=== PATIENT | female | born 1950 | race Caucasian/White ===

== ENCOUNTER → 2016-08-16 | Outpatient (CLI) | payer OTHER | LOC: FIMAGING 08:11 | DX: Z12.31 Encounter for screening mammogram for malignant neoplasm of breast (principal); Z80.3 Family history of malignant neoplasm of breast | CPT/HCPCS: G0202 ==

== ENCOUNTER → 2016-08-27 | Outpatient (CLI) | payer OTHER | LOC: BMCIMAGING 15:16 | PROVIDERS: ATTEND Family Medicine | DX: J40 Bronchitis, not specified as acute or chronic (principal) ==

== ENCOUNTER 2016-09-02 20:29 | Emergency (ER) | payer OTHER ==
--- NOTE | 2016-09-02 20:50 | CPEKG ---
Heart Rate: 122 RR Interval: 492 P-R Interval: 124 QRSD Interval: 74 QT Interval: 308 QTC Interval: 439 P Floweree: 78 QRS Floweree: 14 T Wave Floweree: 86 EKG Severity - OTHERWISE NORMAL ECG - EKG Impression: SINUS TACHYCARDIA Electronically Signed By: Bony Canchola 02-Sep-2016 22:49:54
[2016-09-02] MEDS ORDERED: ASPIRIN 81 MG CHEWABLE TAB ONE (20:52)
[2016-09-02] MEDS ORDERED: ASPIRIN 325 MG TAB PO ONE (20:55)
[2016-09-02 20:57] VITALS: O2SAT 96
[2016-09-02] MEDS ORDERED: NS 1,000 ML IV ONE (21:00)
[2016-09-02 21:04] LABS: % IMMATURE GRANULYOCYTES 0.4 % (0.0-1.1); ABSOLUTE IMMATURE GRANULOCYTES 0.05 10^3/uL (0.00-0.10); ADD DIFF? NO; ADD MORPH? NO; ADD SCAN? NO; ATYPICAL LYMPHOCYTE FLAG 50 (0-99); FRAGMENT RBC FLAG 0 (0-99); HEMATOCRIT 42.9 % (38.0-47.0); HEMOGLOBIN 14.9 g/dL (12.6-16.3); LEFT SHIFT FLG 0 (0-99); LIPEMIA HEMOLYSIS FLAG 90 (0-99); MEAN CELL HEMOGLOBIN 30.8 pg (27.9-34.1); MEAN CELL HEMOGLOBIN CONCENTR. 34.7 g/dL (32.4-36.7); MEAN CELL VOLUME 88.6 fL (81.5-99.8); MEAN PLATELET VOLUME 9.5 fL (8.7-11.7); PLATELET CLUMPS FLAG 0 (0-99); PLATELET COUNT 211 10^3/uL (150-400); RED BLOOD CELL COUNT 4.84 10^6/uL (4.18-5.33); RED CELL DISTRIBUTION WIDTH 12.5 % (11.5-15.2)
[2016-09-02] MEDS ORDERED: LIDOCAINE 2% VISCOUS 15 ML UDCUP PO ONE ×2 (21:10→22:42)
[2016-09-02] MEDS ORDERED: HYOSCYAMINE SULFATE 0.125 MG TAB PO ONE ×2 (21:10→22:42)
[2016-09-02] MEDS ORDERED: MAG HYDROX/AL HYDROX/SIMETH 30 ML UDCUP PO ONE ×2 (21:10→22:42)
[2016-09-02 21:17] LABS: ANION GAP 12 mEq/L (8-16); CALCIUM 9.5 mg/dL (8.5-10.4); CARBON DIOXIDE 25 mEq/l (22-31); CHLORIDE 100 mEq/L (97-110); CREATININE 0.8 mg/dL (0.6-1.0); GLOMERULAR FILTRATION RATE > 60; GLUCOSE 142 mg/dL (70-100); POTASSIUM 3.6 mEq/L (3.5-5.2); SODIUM 137 mEq/L (134-144)
--- NOTE | 2016-09-02 21:25 | EDPHY ---
H & P Stated Complaint: sternal chest pain rad to R shoulder worse w/ eating; tachycardia; fever Time Seen by Provider: 09/02/16 20:57 - Personal History Current Tetanus/Diphtheria Vaccine: Yes Current Tetanus Diphtheria and Acellular Pertussis (TDAP): Yes Tetanus Vaccine Date: Pt. unsure of exact date. States "I know that I'm up to date." - Medical/Surgical History Hx Asthma: Yes Hx Chronic Respiratory Disease: No Hx Diabetes: No Hx Cardiac Disease: No Hx Renal Disease: No Hx Cirrhosis: No Hx Alcoholism: No Hx HIV/AIDS: No Hx Splenectomy or Spleen Trauma: No Other PMH: parternal cardiac arrest age 59; asthma; hx eosinophilic pneumonia; diabetes type 2 (non-insulin); osteopenia - Social History Smoking Status: Never smoked Constitutional: Initial Vital Signs Temperature (C) 38.2 C 09/02/16 20:31 Heart Rate 130 H 09/02/16 20:31 Respiratory Rate 20 09/02/16 20:31 Blood Pressure 131/86 H 09/02/16 20:31 O2 Sat (%) 91 L 09/02/16 20:31 O2 Delivery Mode Nasal Cannula O2 (L/minute) 2 Allergies/Adverse Reactions: No Known Allergies Allergy (Unverified 07/25/10 00:26) Home Medications: Medication Instructions Recorded Albuterol Sulfate [Albuterol HFA 2 puffs IH Q4-6PRN PRN 07/25/10 17g] PREDNISONE 30 mg PO DAILY 07/25/10 Xolair IM AD 07/25/10 Atorvastatin Calcium 09/02/16 Dulera 09/02/16 Famotidine [Pepcid 20 MG (OTC)] 20 mg PO DAILY #10 tab 09/02/16 Metformin HCl 09/02/16 Medical Decision Making - Diagnostics Imaging: I viewed and interpreted images myself ED Course/Re-evaluation: CHIEF COMPLAINT: Fever, malaise HISTORY OF PRESENT ILLNESS: The patient is a 65 y/o female, with a history of eosinophilic pneumonia, arriving with her complaining of persistent fever and malaise for the last week with intermittent chest pain onset today. She developed a fever and elevated heart rate around 130 a week ago and was evaluated at urgent care for this. Her flu swab was negative and she was started on a Z-pack for presumed bacterial infection. During this time, she's had a productive cough with some dyspnea, but not worse than baseline. She has continued to feel poor and today developed "extreme heartburn" that radiates into her right arm any time she eats or drinks. Aside from the heartburn sensation, these symptoms feel similar to prior episodes of eosinophilic pneumonia. No abdominal pain, diarrhea. REVIEW OF SYSTEMS: A 10 point review of systems was performed and is negative with the exception of the elements mentioned in the history of present illness. PHYSICAL EXAM: General Appearance: Alert, well hydrated, appropriate, and non-toxic appearing. Head: Atraumatic without scalp tenderness or obvious injury Eyes: Pupils equal, round, reactive to light and accommodation, EOMI, no trauma , no injection. Nose: Atraumatic, no rhinorrhea, clear. Throat: There is no erythema or exudates, no lesions, normal tonsils, mucus membranes moist. Neck: Supple, non-tender, no lymphadenopathy. Respiratory: No retractions, no distress, no wheezes, and no accessory muscle use. Lungs are clear to auscultation bilaterally. Cardiovascular: Tachycardic regular rate and rhythm, no murmurs, rubs, or gallops. Good capillary refill all extremities. Gastrointestinal: Abdomen is soft, non-tender, non-distended, no masses, no rebound, no guarding, no peritoneal signs. Musculoskeletal: Normal active ROM of all extremities, atraumatic. Neurological: Alert, appropriate, and interactive. Nonfocal neuro exam. Skin: No rashes, good turgor, no nodules on palpation. PAST MEDICAL HISTORY: Chronic eosinophilic pneumonia PAST SURGICAL HISTORY: Denies FAMILY HISTORY: Daughter has eosinophilic esophagitis SOCIAL HISTORY: at bedside PCP: Dr. Kristen Quintana Disbursing Agent: Dr. Claude Lopez DIAGNOSTICS/PROCEDURES/CRITICAL CARE TIME: The 12 lead EKG was interpreted by myself. Sinus tachycardiac rate 122. See hard copy and/or "tracemaster" electronic copy for interpretation. Chest x-ray: negative DIFFERENTIAL DIAGNOSIS: The differential diagnosis for the patient's chest pain included but was not limited to eosinophilic esophagitis, eosinophilic pneumonia , sepsis, myocardial ischemia, pulmonary embolus, chest wall pain, pleural inflammation, and pulmonary infectious causes. MEDICAL DECISION MAKING: This is a 65 y/o female who presents with a 1-week history of fever and malaise and heartburn with radiating right arm pain onset today. She has a history of eosinophilic pneumonia that she reports also tends to cause fever and general malaise without heartburn. She is tachycardic around 130 and borderline hypoxemic at 91%, but her exam is otherwise unremarkable. Her symptoms may very likely by eosinophilic esophagitis as her pain underlies her sternum and is brought on by eating and drinking. She currently does not meet sepsis screening criteria. Plan for IV, labs, chest x-ray, EKG, and symptomatic treatment. 324mg PO Aspirin and PO GI cocktail administered. Patient declines pain mediation at this time. Despite elevated lactate, does not appear septic. EKG and chest x-ray unremarkable. 1012: Consulted with Dr. Claude Lopez, patient's pasteurizer helper. He agrees with work up and plan for discharge home if patient is feeling improved. He notes patient has a 20+ year use of prednisone and could have an ulcer or gastritis as well. She is scheduled to see him as an outpatient tomorrow in his clinic. Reassessed patient and discussed work up and Dr. Claude Lopez's plan for follow up. Her HR has improved to 96. She is feeling much better and denies ongoing more pain. She notes she's been on 20mg prednisone daily for last week. She will receive 40mg IV Pepcid here prior to discharge. She's [place] [facility] [place]. Return precautions given. She is comfortable with plan for follow up. - Data Points Laboratory Results: Laboratory Results 09/02/16 20:50 09/02/16 20:50 09/02/16 09/02/16 09/02/16 20:50 20:50 20:50 WBC 11.72 10^3/uL H 10^3/uL (3.80-9.50) RBC 4.84 10^6/uL 10^6/uL (4.18-5.33) Hgb 14.9 g/dL g/dL (12.6-16.3) Hct 42.9 % % (38.0-47.0) MCV 88.6 fL fL (81.5-99.8) MCH 30.8 pg pg (27.9-34.1) MCHC 34.7 g/dL g/dL (32.4-36.7) RDW 12.5 % % (11.5-15.2) Plt Count 211 10^3/uL 10^3/uL (150-400) MPV 9.5 fL fL (8.7-11.7) Neut % (Auto) 66.9 % % (39.3-74.2) Lymph % (Auto) 19.7 % % (15.0-45.0) Scurry % (Auto) 12.3 % % (4.5-13.0) Eos % (Auto) 0.3 % L % (0.6-7.6) Baso % (Auto) 0.4 % % (0.3-1.7) Nucleat RBC Rel Count 0.0 % % (0.0-0.2) Absolute Neuts (auto) 7.84 10^3/uL H 10^3/uL (1.70-6.50) Absolute Lymphs (auto) 2.31 10^3/uL 10^3/uL (1.00-3.00) Absolute Monos (auto) 1.44 10^3/uL H 10^3/uL (0.30-0.80) Absolute Eos (auto) 0.03 10^3/uL 10^3/uL (0.03-0.40) Absolute Basos (auto) 0.05 10^3/uL 10^3/uL (0.02-0.10) Absolute Nucleated RBC 0.00 10^3/uL 10^3/uL (0-0.01) Immature Gran % 0.4 % % (0.0-1.1) Immature Gran # 0.05 10^3/uL 10^3/uL (0.00-0.10) VBG Lactic Acid 2.6 mmol/L H mmol/L (0.7-2.1) Sodium 137 mEq/L mEq/L (134-144) Potassium 3.6 mEq/L mEq/L (3.5-5.2) Chloride 100 mEq/L mEq/L (97-110) Carbon Dioxide 25 mEq/l mEq/l (22-31) Anion Gap 12 mEq/L mEq/L (8-16) BUN 24 mg/dL H mg/dL (7-23) Creatinine 0.8 mg/dL mg/dL (0.6-1.0) Estimated GFR > 60 Glucose 142 mg/dL H mg/dL (70-100) Calcium 9.5 mg/dL mg/dL (8.5-10.4) Troponin I < 0.012 ng/mL ng/mL (0-0.034) NT-Pro-B Natriuret Pep 49 pg/mL pg/mL (0-125) Medications Given: Discontinued Medications Al Hydroxide/Mg Hydroxide (Maalox Susp) 30 ml PO ONCE ONE Stop: 09/02/16 21:11 Last Admin: 09/02/16 21:27 Dose: 30 ml Aspirin (Aspirin) 325 mg PO EDNOW ONE Stop: 09/02/16 20:56 Last Admin: 09/02/16 20:57 Dose: 325 mg Hyoscyamine Sulfate (Levsin, Hyomax-Sl) 0.25 mg PO ONCE ONE Stop: 09/02/16 21:11 Last Admin: 09/02/16 21:27 Dose: 0.25 mg Lidocaine (Lidocaine 2% Viscous) 15 ml PO ONCE ONE Stop: 09/02/16 21:11 Last Admin: 09/02/16 21:27 Dose: 15 ml Departure - Departure Disposition: Home, Routine, Self-Care Clinical Impression: Eosinophilic esophagitis Condition: Good Instructions: Esophagitis (ED) Additional Instructions: 1. Follow up with Dr. Claude Lopez tomorrow as planned. 2. Take Pepcid daily until directed otherwise by GI. 3. Use GI cocktail as prescribed if needed for recurrent symptoms prior to your appointment with Dr. Claude Lopez. 4. Follow up with [facility] Muir, next week. 4. Return to the ED for any worsening of condition. Referrals: Mehnaz Quintana MD [Primary Care Provider] - As per Instructions Jorge Harkins MD [[facility] [place] - As per Instructions Claude Lopez MD [Medical Doctor] - As per Instructions Prescriptions: Famotidine [Pepcid 20 MG (OTC)] 20 mg PO DAILY #10 tab Report Scribed for: Bony Canchola Report Scribed by: Barbara Cuba Date of Report: 09/02/16 Time of Report: 22:15
[2016-09-02 21:29] LABS: TROPONIN I < 0.012 ng/mL (0-0.034)
[2016-09-02] MEDS ORDERED: FAMOTIDINE 20 MG TAB PO ONE (22:43)
[2016-09-02 22:51] VITALS: BP 115/82; PULSE 100; RESP 14; TEMP 98.1
== END 2016-09-02 22:51 | disposition home or self-care (01) ==
DX: K20.0 Eosinophilic esophagitis (principal); J45.909 Unspecified asthma, uncomplicated; E11.9 Type 2 diabetes mellitus without complications; Z79.84 Long term (current) use of oral hypoglycemic drugs

== ENCOUNTER 2016-12-29 11:15 | Day surgery (SDC) | payer OTHER ==
[2016-12-29] MEDS ORDERED: LIDOCAINE 1% 2 ML INJ ID PRN (11:48)
[2016-12-29] MEDS ORDERED: LR 1,000 ML IV ONE (11:48)
--- NOTE | 2016-12-29 12:03 | PDANEPAE ---
ANE History of Present Illness 66 year old female w/ PMHx of severe asthma, eosinophilic esophagitis & NIDDM presents for 5th metatarsal ORIF. ANE Past Medical History - Cardiovascular History Hx Hypertension: No Hx Arrhythmias: No Hx Chest Pain: No Hx Coronary Artery / Peripheral Vascular Disease: No Hx CHF / Valvular Disease: No Hx Palpitations: No - Pulmonary History Hx COPD: Yes Hx Asthma/Reactive Airway Disease: Yes Hx Recent Upper Respiratory Infection: No Hx Oxygen in Use at Home: No Hx Sleep Apnea: No Sleep Apnea Screening Result - Last Documented: Negative Pulmonary History Comment: severe asthma - Neurologic History Hx Cerebrovascular Accident: No Hx Seizures: No Hx Dementia: No - Endocrine History Hx Diabetes: Yes Hypothyroid: No Hyperthyroid: No Endocrine History Comment: type 2 diabetes - Renal History Hx Renal Disorders: No - Liver History Hx Hepatic Disorders: No - Neurological & Psychiatric Hx Hx Neurological and Psychiatric Disorders: No - Cancer History Hx Cancer: No - Congenital Disorder History Hx Congenital Disorders: No - GI History Hx Gastrointestinal Disorders: No Gastrointestinal History Comment: microscopic colitis. herpes esophagitis - Chronic Pain History Chronic Pain: No - Surgical History Prior Surgeries: 4 c- sections. uterine ablation. wrist surgery ANE Review of Systems Review of systems is: negative Review of Systems: - Exercise capacity Exercise capacity: <4 METS METS (RN): 3 METS ANE Patient History - Allergies Allergies/Adverse Reactions: No Known Allergies Allergy (Unverified 07/25/10 00:26) - Home Medications Home medications: home medication list seen and reviewed Home Medications: Albuterol Sulfate [Albuterol HFA 17g] 2 puffs IH Q4-6PRN PRN 07/25/10 [Last Taken 12/29/16] PREDNISONE 10 mg PO EVERY OTHER DAY 07/25/10 [Last Taken 12/27/16] Xolair SQ AD 07/25/10 [Last Taken 1 Week Ago ~12/22/16] Atorvastatin Calcium DAILY 09/02/16 [Last Taken 12/28/16] Dulera IH DAILY 09/02/16 [Last Taken 12/28/16] Metformin HCl HS 09/02/16 [Last Taken 12/28/16] Prednisone 5 mg EVERY OTHER DAY 12/23/16 [Last Taken 12/28/16] - NPO status NPO Status: no food or drink >8 hours NPO Since - Liquids (Date): 12/29/16 NPO Since - Liquids (Time): 09:15 NPO Since - Solids (Date): 12/28/16 NPO Since - Solids (Time): 20:30 - Anes Hx Anes Hx: no prior problems - Smoking Hx Smoking Status: Never smoked Marijuana use: No - Alcohol Use Alcohol Use: Occasionally - Family Anes Hx Family Anes Hx: neg - N/A Family Hx Anesthesia Complications: none ANE Labs/Vital Signs - Vital Signs Vital Signs: reviewed preoperatively; see RN documention for details Blood Pressure: 123/85 Heart Rate: 80 Respiratory Rate: 14 O2 Sat (%): 93 Height: 165.1 cm Weight: 67.132 kg ANE Physical Exam - Airway Neck exam: FROM Mallampati Score: Class 2 Mouth exam: normal dental/mouth exam - Pulmonary Pulmonary: no respiratory distress - Cardiovascular Cardiovascular: regular rate and rhythym - ASA Status ASA Status: II ANE Anesthesia Plan Anesthesia Plan: MAC Total IV Anesthesia: Yes
[2016-12-29] MEDS ORDERED: BACITRACIN 50,000 UNITS/10 ML SYR IRR ONE (12:04)
[2016-12-29] MEDS ORDERED: BUPIVACAINE 0.5% 30 ML SDV ONE (12:04)
[2016-12-29] MEDS ORDERED: LIDOCAINE 2% 5 ML SDV ONE (12:04)
[2016-12-29] MEDS ORDERED: ROPIVACAINE HCL 20 MG/10 ML INJ EP ONE (12:04)
[2016-12-29] MEDS ORDERED: DEXAMETHASONE 4 MG/ML VIAL ONE ×2 (12:04→12:44)
[2016-12-29] MEDS ORDERED: MIDAZOLAM 2 MG/2 ML VIAL IVP ONE (12:08)
[2016-12-29] MEDS ORDERED: PROPOFOL/EMULSION 500 MG/50 ML BOTTLE IV ONE ×2 (12:36→13:32)
--- NOTE | 2016-12-29 12:36 | PDHPUP ---
History & Physical Update H&P update statement: This history and physical update is based on an assessment of the patient which was completed after admission or registration (within 24 hours), but prior to the surgery/procedure. H&P changes: NONE. Duyen met with her fraud manager and GI physicians for clearance
[2016-12-29] MEDS ORDERED: ONDANSETRON 4 MG/2 ML VIAL ONE (12:44)
[2016-12-29] MEDS ORDERED: fentaNYL 100 MCG/2 ML INJ ONE (12:45)
[2016-12-29] MEDS ORDERED: ceFAZolin 1 GM VIAL ONE ×2 (13:12)
[2016-12-29] MEDS ORDERED: NALOXONE HCL 0.4 MG/ML INJ IVP PRN (14:24)
[2016-12-29] MEDS ORDERED: ONDANSETRON 4 MG/2 ML VIAL IVP PRN (14:24)
[2016-12-29] MEDS ORDERED: fentaNYL 100 MCG/2 ML INJ IVP PRN (14:24)
[2016-12-29] MEDS ORDERED: HYDROCODONE/APAP 5/325 TAB PO PRN (14:24)
[2016-12-29] MEDS ORDERED: ROPIVACAINE HCL 150 MG/30 ML INJ ONE ×2 (15:10→15:31)
--- NOTE | 2016-12-29 15:32 | POSTANESTH ---
Post Anesthetic Evaluation Cardiovascular Status: Normal, Stable, Similar to Pre-Op Cond Respiratory Status: Normal, Stable, Similar to Pre-op Cond. Level of Consciousness/Mental Status: Can Participate in Eval Pain Control: Adequate, Prn Tx Ordered Nausea/Vomiting Control: Adequate, Prn Tx Ordered Complications Possibly Related to Anesthesia: None Noted
[2016-12-29 15:34] VITALS: TEMP 96.8
--- NOTE | 2016-12-29 15:38 | POSTOPPROG ---
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 Findings: instability at fracture site Inf/Abcess present in the surg proc area at time of surgery?: No Depth: Deep Incisional (Fascial) EBL: Minimal (none)
[2016-12-29 15:48] VITALS: PULSE 69
[2016-12-29 16:09] VITALS: BP 142/86
[2016-12-29 16:19] VITALS: RESP 11; O2SAT 97
== END 2016-12-29 16:43 | disposition home or self-care (01) ==
LOC: FSGY 11:15
PROVIDERS: ATTEND Podiatrist
PROC: 0QSN04Z Reposition Right Metatarsal with Internal Fixation Device, Open Approach (ICD-10-PCS; principal; 2016-12-29 12:30)
DX: S92.351K Displaced fracture of fifth metatarsal bone, right foot, subsequent encounter for fracture with nonunion (principal); X58.XXXD Exposure to other specified factors, subsequent encounter; J45.909 Unspecified asthma, uncomplicated; Z79.51 Long term (current) use of inhaled steroids; K52.839 Microscopic colitis, unspecified; E11.9 Type 2 diabetes mellitus without complications; K20.0 Eosinophilic esophagitis
CPT/HCPCS: 28485; 73620; C1769; C1713; C1762; J0690; J1100; J2250; J2405; J2704; J2795; J3010

== ENCOUNTER → 2017-01-24 | Outpatient (CLI) | payer OTHER | LOC: CIMAGING 12:52 | PROVIDERS: ATTEND Internal Medicine Gastroenterology | DX: R74.0 Nonspecific elevation of levels of transaminase and lactic acid dehydrogenase [LDH] (principal) | CPT/HCPCS: 76705-PO ==

== ENCOUNTER 2017-03-09 12:40 | Emergency (ER) | payer OTHER ==
[2017-03-09 12:52] VITALS: BP 165/108; PULSE 99; RESP 18; TEMP 97.5; O2SAT 94
== END 2017-03-09 12:58 | disposition left against medical advice (07) ==
DX: Z53.21 Procedure and treatment not carried out due to patient leaving prior to being seen by health care provider (principal)

== ENCOUNTER 2017-03-09 13:46 | Emergency (ER) | payer OTHER ==
--- NOTE | 2017-03-09 15:39 | EDPHY ---
H & P Stated Complaint: tripped and fell abrasion to nasal bridge/l knee pain/hit head /no loc/cagle Time Seen by Provider: 03/09/17 15:38 HPI/ROS: HPI: This is a 66-year-old female who presents with Chief Complaint: tripped and fell abrasion to nasal bridge/l knee pain/hit head /no loc/cagle Location: Nose, neck, left wrist, left knee Quality: Injury Duration: Prior to arrival Signs and Symptoms: No bleeding, no radiation, no numbness, no weakness, no tingling, no incontinence, + decreased range of motion, + swelling, + pain, + ecchymosis, no LOC Timing: Sudden Severity: Dezy-lp-tdybepah nature Context: Patient is here visiting from [place] for a [facility] [employer] convention at the [facility] in [facility]. She reports that she went through of the bead curtain and accidentally tripped. She fell forward using her left hand to break her fall and landing on her nose. She sustained a cut to her nose that started to bleed but resolved with direct pressure. She does report some posterior neck pain, left wrist pain, left knee pain-that is mild and nonradiating in nature, worse with use. Tetanus up-to-date. Denies LOC/ headache. Blood pressure was initially elevated via EMS but has quickly resolved upon arrival to the ER. Modifying Factors: None Comment: ROS: see HPI Constitutional: No fever, no chills, no weight loss Eyes: No blurred vision Respiratory: No shortness of breath, no cough Cardiovascular: No chest pain Gastrointestinal: No nausea, no vomiting no diarrhea Genitourinary: No dysuria Extremities: No myalgias Neurologic: No weakness, no numbness Skin: No rashes Hematologic: No bruising, no bleeding MEDICAL/SURGICAL/SOCIAL HISTORY: Medical/surgical history: parternal cardiac arrest age 59; asthma; hx eosinophilic pneumonia; diabetes type 2 (non-insulin); osteopenia Social history: [employer], lives in [place] CONSTITUTIONAL: Pleasant adult white female, awake and alert, no obvious distress HEENT: Atraumatic and normocephalic, PERRL, EOMI. no globe entrapment, no raccoon eyes. no Burton signs.Tympanic membranes clear. No tympanic membrane rupture. Nares patent; no septal hematoma; mild dried epistaxis noted in right nares, superficial abrasion 1 cm linear on bridge of nose. Oropharynx clear, no exudate and moist pink mucosa. No malocclusion. no dental trauma. Airway patent. No lymphadenopathy. NECK: supple, no midline tenderness, flexion 45 degrees, extension 45 degrees, right and left lateral flexion 45 degrees. No meningismus. Cardiovascular: Normal S1/S2, regular rate, regular rhythm, without murmur rub or gallop. PULMONARY/CHEST: Symmetrical and nontender. no crepitus. Clear to auscultation bilaterally. Good air movement. No accessory muscle usage. ABDOMEN: Soft, nondistended, nontender, no ecchymosis, no rebound, no guarding , no peritoneal signs, no masses or organomegaly. No CVAT. PELVIC: no pain with rocking; bilateral hips flexion 125 degrees, extension 30 degrees, with no pain internal rotation and no pain external rotation. BACK: No midline tenderness, no paraspinous spasm, deep tendon reflexes 2/2, no pain with straight leg raise EXTREMITIES: 2/2 radial/DP/PT pulses, LEFT WRIST: Extension to 70, flexion to 80, radial deviation to 20 degree, ulnar deviation to 30, no scaphoid tenderness, no tenderness over ulnar styloid, no tenderness over radial styloid , ecchymosis noted over radial styloid. LEFT KNEE: no effusion, no medial and lateral joint line tenderness, full extension to 180, flexion to 120, no pain with varus and valgus exam. No anterior drawer or posterior drawer sign. Mild ecchymosis noted on anterior aspect of knee. no deformities, no clubbing, no cyanosis or edema. NEUROLOGICAL: no focal neuro deficits. GCS 15. SKIN: Warm and dry, no erythema. no rash. Good capillary refill. Source: Patient Exam Limitations: No limitations - Personal History Current Tetanus/Diphtheria Vaccine: Yes Tetanus Vaccine Date: Pt. unsure of exact date. States "I know that I'm up to date." - Medical/Surgical History Hx Asthma: Yes Hx Chronic Respiratory Disease: No Hx Diabetes: Yes Hx Cardiac Disease: No Hx Renal Disease: No Hx Cirrhosis: No Hx Alcoholism: No Hx HIV/AIDS: No Hx Splenectomy or Spleen Trauma: No Other PMH: parternal cardiac arrest age 59; asthma; hx eosinophilic pneumonia; diabetes type 2 (non-insulin); osteopenia - Social History Smoking Status: Never smoked Constitutional: Initial Vital Signs Temperature (C) 36.4 C 03/09/17 14:04 Heart Rate 90 03/09/17 14:04 Respiratory Rate 18 03/09/17 14:04 Blood Pressure 135/93 H 03/09/17 14:04 O2 Sat (%) 92 03/09/17 14:04 O2 Delivery Mode Room Air Allergies/Adverse Reactions: No Known Allergies Allergy (Verified 03/09/17 14:04) Home Medications: Medication Instructions Recorded Albuterol Sulfate [Albuterol HFA 2 puffs IH Q4-6PRN PRN 07/25/10 17g] PREDNISONE 10 mg PO EVERY OTHER DAY 07/25/10 Xolair SQ AD 07/25/10 Atorvastatin Calcium DAILY 09/02/16 Dulera IH DAILY 09/02/16 Metformin HCl HS 09/02/16 Prednisone 5 mg EVERY OTHER DAY 12/23/16 Budesonide 03/09/17 Cyclobenzaprine [Flexeril 10 MG 10 mg PO TID PRN #12 tab 03/09/17 (*)] Medical Decision Making - Diagnostics Imaging Results: Imaging Impressions Knee X-Ray 03/09/17 15:46 Impression: Negative. No acute fracture or effusion. Nasal Bones X-Ray 03/09/17 15:46 Impression: Negative. No acute nasal fracture. Wrist X-Ray 03/09/17 15:46 Impression: Negative. No acute fracture. Procedures: Procedure: Laceration repair. Verbal consent was obtained from the patient. The 1 cm simple laceration on the bridge of nose was anesthetized in the usual fashion using let topical. The wound was irrigated, draped and explored to its base with a gloved finger. There were no deep structures involved. The wound was repaired with Dermabond. Good hemostasis was achieved and patient tolerated procedure well. The procedure was performed by myself. ED Course/Re-evaluation: CT cervical scan, left wrist x-ray, nasal x-ray, left knee x-ray ordered Tetanus up-to-date Nasal laceration is superficial in nature; let topical applied; irrigated; Dermabond used for closure. No signs of neurovascular compromise/tenting of skin/compartment syndrome/ extremities and joints examined above and below area of concern and are neurovascularly intact. Fall mechanical in nature Left wrist x-ray my read shows no fracture Left knee x-ray my read shows no fracture, dislocation, effusion Nasal bone x-rays my read show no fracture 1755: Called by radiologist CT Cervical shows no fracture/+ muscle spasm, multilevel DDD; C5-C6, C6-C7, carotid soft tissue calcification; recommends carotid us outpatient This patient was seen under the supervision of my primary supervising physician. I evaluated care for this patient independently. Patient's presentation, labs/imaging, treatment and plan of care were discussed with primary supervising physician. Differential Diagnosis: Differential diagnosis includes but is not limited to cervical fracture, nasal bridge fracture, wrist fracture, knee dislocation, nerve injury. - Data Points Medications Given: Discontinued Medications Tetracaine/Epinephrine/Lidocaine (Let Gel Topical) 1 ea TP EDNOW ONE Stop: 03/09/17 15:47 Last Admin: 03/09/17 16:02 Dose: 1 ea Departure - Departure Disposition: Home, Routine, Self-Care Clinical Impression: Degenerative disc disease, cervical, Spasm of cervical paraspinous muscle Laceration of nose without complication Qualifiers: Encounter type: initial encounter Qualified Code(s): S01.21XA - Laceration without foreign body of nose, initial encounter Sprain of left wrist Qualifiers: Encounter type: initial encounter Qualified Code(s): S63.502A - Unspecified sprain of left wrist, initial encounter Contusion of left knee Qualifiers: Encounter type: initial encounter Qualified Code(s): S80.02XA - Contusion of left knee, initial encounter Condition: Good Instructions: Skin Adhesive Care (ED), Facial Laceration (ED) Additional Instructions: CT cervical scan shows no fracture/+ muscle spasm, multilevel DDD; C5-C6, C6-C7 , carotid soft tissue calcification; recommend carotid ultrasound outpatient. Take Tylenol 650 mg every 4 hours and/or Ibuprofen 600 mg every 8 hours with food as needed for pain. Using heating pad on your neck muscles for spasm as needed. Take Flexeril every 8 hr as needed for muscle spasm. If any radicular symptoms or numbness begin, please follow-up with her primary care provider. It would be beneficial at that time to obtain MRI of her cervical spine. The x-rays obtained in the emergency department today demonstrate no evidence of an obvious fracture. Sometimes fractures are not obvious on the initial set of x-rays performed in the ED. For this reason, you should have repeat x-rays performed in 7-10 days if you are having any pain exclude the possibility of an occult fracture. Please avoid washing her nose for 48 hr. After 48 hr, you may wash your nose with mild soap and water; pat dry. Allow surgical glue to gently wear off. Do not pick at the area. Referrals: Mehnaz Quintana MD [Primary Care Provider] - As per Instructions Prescriptions: Cyclobenzaprine [Flexeril 10 MG (*)] 10 mg PO TID PRN #12 tab PRN Reason: Spasms
[2017-03-09] MEDS ORDERED: LET GEL TOPICAL 1 EA SYR TP ONE (15:46)
[2017-03-09] MEDS ORDERED: SKIN ADHESIVE (DERMABOND) 1 EACH TP ONE ×2 (15:55→16:01)
[2017-03-09 17:00] VITALS: BP 147/104; PULSE 86; RESP 16; TEMP 97.9; O2SAT 93
== END 2017-03-09 18:14 | disposition home or self-care (01) ==
PROC: 0HQ1XZZ Repair Face Skin, External Approach (ICD-10-PCS; principal; 2017-03-09)
DX: S01.21XA Laceration without foreign body of nose, initial encounter (principal); S63.502A Unspecified sprain of left wrist, initial encounter; S80.02XA Contusion of left knee, initial encounter; M50.30 Other cervical disc degeneration, unspecified cervical region; M62.838 Other muscle spasm; J45.909 Unspecified asthma, uncomplicated; E11.9 Type 2 diabetes mellitus without complications; Z79.84 Long term (current) use of oral hypoglycemic drugs; W01.198A Fall on same level from slipping, tripping and stumbling with subsequent striking against other object, initial encounter

== ENCOUNTER → 2017-08-17 | Outpatient (CLI) | payer OTHER | LOC: FIMAGING 16:00 | PROVIDERS: ATTEND Internal Medicine | DX: Z12.31 Encounter for screening mammogram for malignant neoplasm of breast (principal) ==

== ENCOUNTER → 2017-09-15 | Outpatient (CLI) | payer OTHER | LOC: FIMAGING 14:04 | PROVIDERS: ATTEND Internal Medicine | DX: Z13.820 Encounter for screening for osteoporosis (principal); M85.89 Other specified disorders of bone density and structure, multiple sites; E11.9 Type 2 diabetes mellitus without complications; Z78.0 Asymptomatic menopausal state; Z79.52 Long term (current) use of systemic steroids; Z87.81 Personal history of (healed) traumatic fracture ==

== ENCOUNTER → 2018-08-28 | Outpatient (CLI) | payer OTHER ==
[~2018-08-28] MED LIST: ALBUTEROL 60 PUFFS/8 GM MDI IH ONE; IOPAMIDOL (ISOVUE 370) 100 ML BTL IV ONE; METOPROLOL TARTRATE 5 MG/5 ML INJ ONE; NITROGLYCERIN 0.4 MG BTL SL ONE
== END ==
LOC: FIMAGING 06:46
PROVIDERS: ATTEND Internal Medicine
DX: I25.10 Atherosclerotic heart disease of native coronary artery without angina pectoris (principal); E78.5 Hyperlipidemia, unspecified; E11.9 Type 2 diabetes mellitus without complications
CPT/HCPCS: 75571; 75574; Q9967; 82565-PO